=== PATIENT | male | born 1995 | race Native Hawaiian/Other Pacific Islander ===

== ENCOUNTER 2017-12-03 21:01 | Emergency (ER) | payer OTHER ==
[~2017-12-03] VITALS: Ht 182.9 cm; Wt 129.3 kg
[2017-12-03 21:32] LABS: PLATELET COUNT 270 K/uL (142-355)
[2017-12-03 21:44] LABS: POTASSIUM 3.8 mmol/L (3.6-5.2); SODIUM 142 mmol/L (136-145)
[2017-12-04 00:04] VITALS: BP 138/75; TEMP 98
== END 2017-12-04 00:05 | disposition home or self-care (01) ==
LOC: ED 21:01
DX: R07.89 Other chest pain (principal); R00.1 Bradycardia, unspecified
CPT/HCPCS: 36415; 80053; 80307; 81000; 82550; 82553; 84484; 85027; 86318; 93005; 99283

== ENCOUNTER 2019-09-28 06:41 | Emergency (ER) | payer OTHER ==
[~2019-09-28] VITALS: Ht 182.9 cm; Wt 136.1 kg
[2019-09-28 06:50] VITALS: TEMP 99.2
[2019-09-28 08:09] VITALS: BP 128/62
== END 2019-09-28 08:09 | disposition home or self-care (01) ==
LOC: ED 06:41
DX: S91.332A Puncture wound without foreign body, left foot, initial encounter (principal); W45.0XXA Nail entering through skin, initial encounter; Y92.89 Other specified places as the place of occurrence of the external cause
CPT/HCPCS: 90471; 90715; 96372; 99283; J0696

== ENCOUNTER 2021-04-13 10:05 | Emergency (ER) | payer OTHER ==
[~2021-04-13] VITALS: Ht 182.9 cm; Wt 133.8 kg
[2021-04-13 10:11] VITALS: TEMP 97.1
[2021-04-13 10:42] LABS: PLATELET COUNT 237 K/uL (142-355)
[2021-04-13 10:58] LABS: POTASSIUM 4.2 mmol/L (3.6-5.2)
[2021-04-13 14:00] VITALS: BP 140/72
== END 2021-04-13 14:00 | disposition home or self-care (01) ==
LOC: ED 10:05
PROVIDERS: Emergency Medicine
DX: N20.0 Calculus of kidney (principal)
CPT/HCPCS: 36415; 80053; 81000; 83690; 84484; 85027; 93005; 96360; 96375; 99284; J2270; J2405

== ENCOUNTER 2021-11-24 07:08 | Emergency (ER) | payer OTHER ==
[~2021-11-24] VITALS: Ht 182.9 cm; Wt 133.8 kg
[2021-11-24 07:10] VITALS: BP 138/64; TEMP 98.8
== END 2021-11-24 08:19 | disposition home or self-care (01) ==
LOC: ED 07:08
DX: H65.192 Other acute nonsuppurative otitis media, left ear (principal); J20.9 Acute bronchitis, unspecified; F17.210 Nicotine dependence, cigarettes, uncomplicated; Z20.822 Contact with and (suspected) exposure to COVID-19
CPT/HCPCS: 87502; 87635; 87651; 99283; U0003

== ENCOUNTER 2022-02-15 20:40 | Emergency (ER) | payer OTHER ==
[~2022-02-15] VITALS: Ht 182.9 cm; Wt 133.8 kg
[2022-02-15 21:56] VITALS: BP 148/88; TEMP 98.7
== END 2022-02-15 21:59 | disposition home or self-care (01) ==
LOC: ED 20:40
PROC: 0HQGXZZ Repair Left Hand Skin, External Approach (ICD-10-PCS; principal; 2022-02-15)
DX: S61.422A Laceration with foreign body of left hand, initial encounter (principal); W26.0XXA Contact with knife, initial encounter; Y92.89 Other specified places as the place of occurrence of the external cause
CPT/HCPCS: 99284; J2001; J7040

== ENCOUNTER 2022-02-27 08:13 | Emergency (ER) | payer OTHER ==
[~2022-02-27] VITALS: Ht 182.9 cm; Wt 133.8 kg
[2022-02-27 08:20] VITALS: BP 139/56; TEMP 98
[2022-02-27] MEDS ORDERED: CEFD300C2 PO (08:50)
== END 2022-02-27 08:57 | disposition home or self-care (01) ==
LOC: ED 08:13
DX: S61.412D Laceration without foreign body of left hand, subsequent encounter (principal); W45.8XXD Other foreign body or object entering through skin, subsequent encounter; Y92.89 Other specified places as the place of occurrence of the external cause

== ENCOUNTER 2022-03-06 14:19 | Emergency (ER) | payer OTHER ==
[~2022-03-06] VITALS: Ht 182.9 cm; Wt 133.8 kg
[~2022-03-06 14:19] MED LIST: CEFD300C2 PO
[2022-03-06 14:20] VITALS: TEMP 97.2
== END 2022-03-06 15:10 | disposition home or self-care (01) ==
LOC: ED 14:19
DX: Z48.02 Encounter for removal of sutures (principal)

== ENCOUNTER 2022-05-16 06:35 | Emergency (ER) | payer OTHER ==
[~2022-05-16] VITALS: Ht 182.9 cm; Wt 131.5 kg
[2022-05-16 07:25] LABS: PLATELET COUNT 250 K/uL (142-355)
[2022-05-16 08:00] VITALS: BP 118/75; TEMP 98.3
== END 2022-05-16 08:04 | disposition home or self-care (01) ==
LOC: ED 06:35
PROVIDERS: Emergency Medicine Emergency Medical Services
DX: K52.89 Other specified noninfective gastroenteritis and colitis (principal)
CPT/HCPCS: 36415; 80053; 85027; 96360; 99284

== ENCOUNTER 2022-06-15 15:26 | Emergency (ER) | payer OTHER ==
[~2022-06-15] VITALS: Ht 188 cm; Wt 131.5 kg
[2022-06-15 16:40] VITALS: BP 116/70; TEMP 98.5
== END 2022-06-15 16:40 | disposition home or self-care (01) ==
LOC: ED 15:26
DX: J20.8 Acute bronchitis due to other specified organisms (principal)
CPT/HCPCS: 93005; 94664; 99283